=== PATIENT | male | born 2000 ===

== ENCOUNTER 2024-06-30 17:47 | Emergency (ER) | payer SELFPAY ==
[2024-06-30] MEDS: Ketorolac 30 MG/ML SDV IM ONE (19:38)
[2024-06-30] MEDS: Lidocaine 4% 1 each Patch TOP ONE (19:40)
[2024-06-30] MEDS: Diazepam 5 MG Tab PO ONE ×2 (19:40→20:50)
[2024-06-30] MEDS: Acetaminophen 500 MG Tab PO ONE (20:50)
[2024-06-30 21:52] VITALS: BP 110/76; PULSE 72
== END 2024-06-30 21:51 | disposition home or self-care (01) ==
LOC: MW.ED 17:47
DX: M54.50 Low back pain, unspecified (principal); J45.909 Unspecified asthma, uncomplicated
CPT/HCPCS: 96372; 99283; A9270; J1885